=== PATIENT | female | born 1985 | race African-American/Black ===

== ENCOUNTER 2018-10-27 09:03 | Emergency (ER) | payer MEDICAID ==
[~2018-10-27] VITALS: Ht 180.3 cm; Wt 104.5 kg
[2018-10-27 09:08] VITALS: BP 128/70; Ht 180.3 cm; Wt 104.5 kg
[2018-10-27] MEDS ORDERED: ZOFRAN ODT4 MG/UDTAB PO (11:05)
== END 2018-10-27 13:00 | disposition home or self-care (01) ==
LOC: D.ER 09:03
DX: R10.9 Unspecified abdominal pain (principal); R11.10 Vomiting, unspecified

== ENCOUNTER 2018-11-20 12:15 | Observation (INO) | payer MEDICAID ==
[2018-11-20] VITALS (11 sets, daily range): BP systolic 129–164; BP diastolic 77–104; Ht 180.3 cm; Wt 113.6 kg
[~2018-11-20] VITALS: Ht 180.3 cm; Wt 113.6 kg
--- NOTE | ~2018-11-20 | DS ---
PATIENT:ELEAZAR ALEXIS :89 MEDICAL RECORD: [id number] DISCHARGE SUMMARY ADMISSION DATE: 11/20/18 DISCHARGE DATE: 11/21/18 DATE OF ADMISSION: 11/20/2018 DATE OF DISCHARGE: 11/21/2018 ADMISSION DIAGNOSIS: Pelvic pain. DISCHARGE DIAGNOSIS: Severe pelvic adhesions. ATTENDING: Gloria Ly MD PROCEDURE: Diagnostic laparoscopy. HISTORY OF PRESENT ILLNESS: See the H&P. SUMMARY OF HOSPITALIZATION: The patient was brought into the hospital as an outpatient. HOSPITAL COURSE: The patient received diagnostic laparoscopy later in the evening on Wednesday. By the following morning, the patient is voiding, tolerating a regular diet and has adequate pain control. The patient is discharged as the immediate postop orders directed and will follow up in 2 weeks at [facility]. TRANSINT:[id number] Voice Confirmation ID: [id number] DOCUMENT ID: [id number] GLORIA LY MD CC: [id number] DICTATION DATE: 11/24/181916 SEED SALES MANAGER: 11/25/18 1038 DIS IN 11/21/18 [facility] [address] [place] [address]
[~2018-11-20 12:15] MED LIST: ZOFRAN ODT4 MG/UDTAB PO
[2018-11-20 12:37] LABS: BASOPHILS 0.3 % (0-2); EOSINOPHILS 0.3 % (0-7); HEMATOCRIT 36.5 % (36.0-48.0); HEMOGLOBIN 13.3 g/dL (12-16); IMMATURE GRANULOCYTES 0.4 % (0-5); LYMPHOCYTES 19.7 % (15-50); MCH 26.8 pg (26.0-34.0); MCHC 36.4 g/dL (31.0-37.0); MCV 73.4 fL (80.0-100.0); MEAN PLATELET VOLUME 10.7 fL (7.4-10.4); MONOCYTES 3.8 % (2-11); NEUTROPHILS 75.5 % (40-80); PLATELET COUNT 165 10x3/uL (130-400); RBC 4.97 10x6/uL (4.00-5.40); RDW 15.5 % (11.5-14.5); WBC 10.4 10x3/uL (4.8-10.8)
[2018-11-20 12:51] LABS: ALBUMIN 3.9 g/dL (3.4-5.0); ALKALINE PHOSPHATASE 89 U/L (46-116); ALT (SGPT) 13 U/L (10-68); AMYLASE - SERUM 53 U/L (25-115); BILIRUBIN - TOTAL 0.34 mg/dL (0.2-1.3); CALC OSMOLALITY 274 mosm/kg (275-300); CALCIUM 8.6 mg/dL (8.5-10.1); CARBON DIOXIDE 24.4 mmol/L (21.0-32.0); CHLORIDE - SERUM 102 mmol/L (98-107); CREATININE - SERUM 0.9 mg/dL (0.6-1.3); GLUCOSE 123 mg/dL (74-106); LIPASE 72 U/L (73-393); PROTEIN - SERUM 8.1 g/dL (6.4-8.2); SODIUM 138 mmol/L (136-145); UREA NITROGEN 8 mg/dL (7-18); eGFR NON AFRICAN AMERICAN 78 mL/min (90-120)
[2018-11-20 12:53] LABS: POTASSIUM - SERUM 2.9 mmol/L (3.5-5.1)
[2018-11-20 13:28] LABS: APPEARANCE CLEAR (CLEAR); BILIRUBIN NEGATIVE (NEGATIVE); COLOR YELLOW (YELLOW); GLUCOSE NEGATIVE (NEGATIVE); KETONE SMALL mg/dL (NEGATIVE); NITRITE NEGATIVE (NEGATIVE); PROTEIN NEGATIVE (NEGATIVE); UROBILINOGEN NORMAL (NORMAL)
[2018-11-20 17:45] LABS: ALBUMIN 3.9 g/dL (3.4-5.0); ALKALINE PHOSPHATASE 94 U/L (46-116); ALT (SGPT) 13 U/L (10-68); BILIRUBIN - TOTAL 0.46 mg/dL (0.2-1.3); CALC OSMOLALITY 270 mosm/kg (275-300); CALCIUM 8.7 mg/dL (8.5-10.1); CHLORIDE - SERUM 101 mmol/L (98-107); CREATININE - SERUM 0.7 mg/dL (0.6-1.3); GLUCOSE 118 mg/dL (74-106); POTASSIUM - SERUM 3.1 mmol/L (3.5-5.1); PROTEIN - SERUM 8.2 g/dL (6.4-8.2); SODIUM 136 mmol/L (136-145); UREA NITROGEN 6 mg/dL (7-18); eGFR NON AFRICAN AMERICAN > 90 mL/min (90-120)
[2018-11-20 17:53] LABS: HCG SERUM NEGATIVE (NEGATIVE)
[2018-11-21 04:46] VITALS: BP 123/69
[2018-11-21 09:27] VITALS: BP 136/88
[2018-11-21] MEDS ORDERED: NEURONTIN 300300 MG PO (11:20)
[2018-11-21] MEDS ORDERED: PERCOCET 7.5/321 TAB PO (11:20)
[2018-11-21] MEDS ORDERED: MOBIC7.5 MG PO (11:21)
--- NOTE | 2018-11-21 19:12 | MORECARE ---
CASE MANAGEMENT DISCHARGE SUMMARY PATIENT: ELEAZAR ALEXSI UNIT: [id number] ADM DATE: 11/20/18 AGE: 32 : 87 SEX: F ROOM/BED: D.1273 AUTHOR: DEJAH HALE PHYSICIAN: REFERRING PHYSICIAN: GLORIA LY MD DATE OF SERVICE: 11/21/18 Discharge Plan Patient Name: ELEAZAR ALEXIS Facility: [facility]:[place] : 1985 Planned Disposition: Home Anticipated Discharge Date: 11/21/18 Discharge Date: 11/21/2018 Expected LOS: 1 Initial Reviewer: [email or web address] Initial Review Date: 11/20/2018 Generated: 11/21/18 8:12 pm Patient Name: ELEAZAR ALEXIS Page [id number] at 1912 All edits/amendments must be made on the electronic document DICTATION DATE: 11/21/181910 MOBILE HEAVY EQUIPMENT OPERATOR: MYKE 11/21/181910 RPT#: [id number] DC DATE:11/21/18 STATUS: DIS IN [facility] [address] [facility] [place] [address] END OF REPORT
--- NOTE | 2018-11-21 19:24 | MORECARE ---
CASE MANAGEMENT DISCHARGE SUMMARY PATIENT: ELEAZAR ALEXIS UNIT: [id number] ADM DATE: 11/20/18 AGE: 32 : 89 SEX: F ROOM/BED: D.1273 AUTHOR: DEJAH HALE PHYSICIAN: REFERRING PHYSICIAN: GLORIA LY MD DATE OF SERVICE: 11/21/18 Discharge Plan Patient Name: ELEAZAR ALEXIS Facility: [facility]:[place] : 1985 Planned Disposition: Home Anticipated Discharge Date: 11/21/18 Discharge Date: 11/21/2018 Expected LOS: 1 Initial Reviewer: [email or web address] Initial Review Date: 11/20/2018 Generated: 11/21/18 8:24 pm Comments DCP- Discharge Planning Updated by [email or web address]: Damari Patel on 11/21/18 6:[address] LATE ENTRY 1243- 1330 CM MET WITH THE PATIENT AT THE [facility]. SHE HAD BEEN DISCHARGED BUT REQUIRED MEDICATION ASSISTANCE. SHE HAD MET W/ MED DATA PREVIOUSLY AT AN ER VISIT. SHE HAD PROVIDED INFORMATION REQUIRED FOR MEDICAID ASSISTANCE. TC TO TAHIRA AT [employer]. HE CALLED MEDICAID REGARDING THE APPLICATION. REC CB THAT APPLICATION WAS PENDING APPROVAL. CM HAD NURSING STAFF TO CALL FOR COST FOR GABAPENTIN NINE DOSES AND MOBIC FOR 2 WEEKS AT [facility], [facility] CONTRACTED PHARMACY, FOR MED ASSIST.. REC CB THAT COST IS $12.00. CM CANNOT ASSIST W/ PAIN MEDS. COST TO PATIENT WILL BE $30.00. DONATION OF $10.00 TO ASSIST W/ ANALGESIC. TC TO CM TRANSCRIBING OPERATORS SUPERVISOR, JACINTA RAMIREZ. APPROVAL OBTAINED FOR $12.00 FOR MOBIC AND GABAPENTIN AT [facility] PHARMACY.. ADVISED NURSES. PATIENT HAS TRANSPORTATION TO HOME. PATIENT DENIED ANY ADDITIONAL NEED. Last DP export: 11/21/18 6:12 p Patient Name: ELEAZAR ALEXIS Page 16830 at 1924 All edits/amendments must be made on the electronic document DICTATION DATE: 11/21/181923 INSTRUMENTATION AND CONTROL TECHNICIAN: MYKE 11/21/181923 RPT#: [id number] DC DATE:11/21/18 STATUS: DIS IN [facility] [address] [place] [address] END OF REPORT
--- NOTE | 2018-11-22 16:25 | MORECARE ---
CASE MANAGEMENT DISCHARGE SUMMARY PATIENT: ELEAZAR ALEXIS UNIT: [id number] ADM DATE: 11/20/18 AGE: 32 : 89 SEX: F ROOM/BED: D.1273 AUTHOR: DEJAH HALE PHYSICIAN: REFERRING PHYSICIAN: GLORIA LY MD DATE OF SERVICE: 11/22/18 Discharge Plan Patient Name: ELEAZAR ALEXIS Facility: [facility]:[place] : 1985 Planned Disposition: Home Anticipated Discharge Date: 11/21/18 Discharge Date: 11/21/2018 Expected LOS: 1 Initial Reviewer: [email or web address] Initial Review Date: 11/20/2018 Generated: 11/22/18 5:25 pm Comments DCP- Discharge Planning Updated by [email or web address]: Damari Patel on 11/21/18 6:[address] LATE ENTRY 1243- 1330 CM MET WITH THE PATIENT AT THE [facility]. SHE HAD BEEN DISCHARGED BUT REQUIRED MEDICATION ASSISTANCE. SHE HAD MET W/ MED DATA PREVIOUSLY AT AN ER VISIT. SHE HAD PROVIDED INFORMATION REQUIRED FOR MEDICAID ASSISTANCE. TC TO TAHIRA AT [employer]. HE CALLED MEDICAID REGARDING THE APPLICATION. REC CB THAT APPLICATION WAS PENDING APPROVAL. CM HAD NURSING STAFF TO CALL FOR COST FOR GABAPENTIN NINE DOSES AND MOBIC FOR 2 WEEKS AT [facility], [facility] CONTRACTED PHARMACY, FOR MED ASSIST.. REC CB THAT COST IS $12.00. CM CANNOT ASSIST W/ PAIN MEDS. COST TO PATIENT WILL BE $30.00. DONATION OF $10.00 TO ASSIST W/ ANALGESIC. TC TO CM ASSISTANT PROFESSOR OF CRIMINAL JUSTICE, JACINTA RAMIREZ. APPROVAL OBTAINED FOR $12.00 FOR MOBIC AND GABAPENTIN AT [facility] PHARMACY.. ADVISED NURSES. PATIENT HAS TRANSPORTATION TO HOME. PATIENT DENIED ANY ADDITIONAL NEED. Last DP export: 11/21/18 6:24 p Patient Name: ELEAZAR ALEXIS Page [phone] at 9875 All edits/amendments must be made on the electronic document DICTATION DATE: 11/22/180 TORCH CUTTER: MYKE 11/22/18 1625 RPT#: [id number] DC DATE:11/21/18 STATUS: DIS IN [facility] [address] [place] [address] END OF REPORT
--- NOTE | 2018-11-25 08:18 | OP ---
PATIENT NAME: ELEAZAR ALEXIS MEDICAL RECORD: [id number] :89 LOCATION:[place] D.1273 ADMISSION DATE:11/20/18 SURGEON: MARK LY MD DATE OF OPERATION: 11/20/2018 PREOPERATIVE DIAGNOSES: 1. Abdominal pain. 2. Pelvic pain. POSTOPERATIVE DIAGNOSES: 1. Abdominal pain. 2. Pelvic pain. POSTOPERATIVE DIAGNOSES: 1. Dense adhesive diseases. 2. Active endometriosis. PROCEDURES: Diagnostic laparoscopy. SURGEON: Mark Ly MD ANESTHESIOLOGIST: RHYS Marte. ANESTHESIA: General. FINDINGS: Dense adhesions across the lower pelvis. The anterior surface of the uterus is visualized; however, cul-de-sac is obliterated through adhesions. The left ovary is poorly visualized with only the lateral aspect seen. Active endometriosis is noted on the pelvic sidewall and on the left ovary. Right ovary is adhesed as well with no obvious evidence of endometriosis. SPECIMENS REMOVED: None. ESTIMATED BLOOD LOSS: Less than or equal to 75 cc. FLUIDS: 1100 cc of lactated Ringer's. URINE OUTPUT: Quantity sufficient, but void prior to this procedure. COMPLICATIONS: None. DRAIN: None. INDICATIONS: The patient is a 32-year-old female admitted from the Emergency Room. The patient has been seen several times for complaints of abdominal and pelvic pain. The patient is consented for diagnostic laparoscopy. DESCRIPTION OF PROCEDURE: After informed consent was assured, the patient was prepped and draped. An incision was made with the umbilicus and a bladeless trocar was attempted to be inserted. Due to the patient's size, the bladeless trocar was abandoned and a Reshma trocar now placed after incision made. Pneumoperitoneum was established and accessory ports placed in lower abdomen. With a blunt probe, the bowel was swept free. With the patient in Trendelenburg position, the adhesions are dense across the lower pelvis. The cul-de-sac appears to be obliterated and active endometriosis is present on the left. Due OPERATIVE REPORT [id number] ELEAAZR ALEXIS to the extent of adhesions, there was no attempt at laparoscopic lysis and procedures at this point abandoned. Pneumoperitoneum was released. Trocars were removed and all trocar sites reapproximated with subcuticular stitches. Dermabond was applied. Sponge, lap, needle counts were correct times 2. The patient was awake and went to the recovery area in stable condition. TRANSINT:[id number] Voice Confirmation ID: [id number] DOCUMENT ID: [id number] MARK LY MD at 0818 CC: [id number] DICTATION DATE: 11/24/181914 COLLEGE ARCHIVIST: 11/24/182001 DIS IN 11/21/18 [place] [id number] [place] [id number]
== END 2018-11-21 13:30 | disposition home or self-care (01) ==
LOC: D.ER 12:15 → D.LD 16:52 → OBSVTIME 16:53 → D.LD 11-21 13:30
PROVIDERS: Family Medicine; ADMIT Obstetrics & Gynecology; ATTEND Obstetrics & Gynecology
DX: N80.9 Endometriosis, unspecified (principal); N73.6 Female pelvic peritoneal adhesions (postinfective)

== ENCOUNTER 2018-12-09 17:29 | Observation (INO) | payer MEDICAID ==
[~2018-12-09 17:29] MED LIST changes: +MOBIC7.5 MG PO; +NEURONTIN 300300 MG PO; +PERCOCET 7.5/321 TAB PO
[2018-12-09 18:29] LABS: APPEARANCE HAZY (CLEAR); BILIRUBIN NEGATIVE (NEGATIVE); COLOR DK YELLOW (YELLOW); GLUCOSE NEGATIVE (NEGATIVE); KETONE NEGATIVE (NEGATIVE); NITRITE NEGATIVE (NEGATIVE); PROTEIN TRACE mg/dL (NEGATIVE); SPECIFIC GRAVITY 1.015 (1.005-1.020); UROBILINOGEN NORMAL (NORMAL); WHITE CELLS - URINE 0-5 /hpf (0-5)
[2018-12-09 18:30] LABS: BACTERIA FEW /hpf (NONE SEEN); EPITHELIAL CELLS 0-5 /hpf (0-5); RED CELLS - URINE >50 /hpf (0-5)
[2018-12-09 18:32] LABS: BASOPHILS 0.4 % (0-2); EOSINOPHILS 1.1 % (0-7); HEMATOCRIT 37.8 % (36.0-48.0); HEMOGLOBIN 13.6 g/dL (12-16); IMMATURE GRANULOCYTES 0.2 % (0-5); LYMPHOCYTES 27.7 % (15-50); MCH 26.6 pg (26.0-34.0); MONOCYTES 5.9 % (2-11); NEUTROPHILS 64.7 % (40-80); PLATELET COUNT 135 10x3/uL (130-400); RBC 5.11 10x6/uL (4.00-5.40); RDW 15.8 % (11.5-14.5); WBC 9.2 10x3/uL (4.8-10.8)
[2018-12-09 18:35] LABS: HCG SERUM NEGATIVE (NEGATIVE)
[2018-12-09 18:43] LABS: ALBUMIN 4.2 g/dL (3.4-5.0); ALKALINE PHOSPHATASE 86 U/L (46-116); ALT (SGPT) 11 U/L (10-68); AMYLASE - SERUM 55 U/L (25-115); BILIRUBIN - TOTAL 0.48 mg/dL (0.2-1.3); CALC OSMOLALITY 277 mosm/kg (275-300); CALCIUM 9.1 mg/dL (8.5-10.1); CARBON DIOXIDE 18.9 mmol/L (21.0-32.0); CHLORIDE - SERUM 104 mmol/L (98-107); CREATININE - SERUM 0.8 mg/dL (0.6-1.3); GLUCOSE 120 mg/dL (74-106); LIPASE 67 U/L (73-393); POTASSIUM - SERUM 3.5 mmol/L (3.5-5.1); PROTEIN - SERUM 8.2 g/dL (6.4-8.2); SODIUM 139 mmol/L (136-145); UREA NITROGEN 9 mg/dL (7-18); eGFR NON AFRICAN AMERICAN 89 mL/min (90-120)
--- NOTE | 2018-12-09 19:11 | NUR ---
REPORT GIVEN TO ONCOMING SHIFT
--- NOTE | 2018-12-09 19:25 | NUR ---
PT TO ULTRASOUND VIA WHEELCHAIR AT THIS TIME.
--- NOTE | 2018-12-09 20:28 | NUR ---
PT TO CT AT THIS TIME.
--- NOTE | 2018-12-09 21:13 | NUR ---
PT AMBULATING TO BATHROOM WITH ASSIST AT THIS TIME.
[2018-12-09 21:14] VITALS: BP 158/106
--- NOTE | 2018-12-09 23:10 | NUR ---
PT BACK FROM ULTRASOUND A THIS TIME.
--- NOTE | 2018-12-09 23:41 | NUR ---
PT REPORT CALLED TO MONICA, FLOOR NURSE. MONICA REQUESTED CONSULT WITH EDP OR SAMUEL ABOUT PT BP. EDP DOESN'T FEEL AGRESSIVELY TREATING BP IN A PT THAT IS IN PAIN IS NECESSARY AT THIS TIME.
[2018-12-10] VITALS (13 sets, daily range): BP systolic 116–223; BP diastolic 67–128; BMI 37.8
--- NOTE | 2018-12-10 01:10 | NUR ---
PT REC'D TO UNIT VIA W/C TRANSPORT WITH FEEDER ASSOCIATE FULLY CLOTHED, TEARFUL AND CONSTANTLY MOVING IN W/C. PAIN 10/10 CONSTANT LOWER ABD AND PELVIC THROBBING. ASSISTED TO CHANGE INTO GOWN. PT REPORTS THAT SHE WAS TOLD SHE COULD HAVE MORE PAIN MEDS AT 0015 IN ER AND HAD ASK FOR THEM BUT DID NOT RECEIVE THEM PRIOR TO TRANSPORT. THIS RN REC'D REPORT AT 2341 FROM TREMAYNE, ED RN WITH REPORTED B/P READING OF 160/95 AT THAT TIME. THIS RN REQUESTED THAT TREMAYNE ADDRESS ELEVATED B/P READING WITH ER OR DR. BAKER PRIOR TO TRANSPORT TO UNIT. TREMAYNE STATES THAT SHE WILL AND CALL REPORT BACK TO UNIT.
--- NOTE | 2018-12-10 01:15 | NUR ---
PT ASSISTED TO BED AND POSITIONED FOR COMFORT. B/P 223/107. PT REPORTS THAT SHE HAS NO H/O HTN EXCEPT FOR "WHEN I'M HURTING REALLY BAD OR AM ANXIOUS." ANDREA, HOUSE SUPERVISIOR NOTIFIED OF B/P AND THIS RN REQUEST TO TRANSPORT PT BACK TO ER FOR B/P AND PAIN CONTROL. PER ANDREA NECK BAND OPERATOR PT CAN NOT BE TRANSPORTED BACK TO ED SINCE SHE LEFT THE DEPARTMENT. WILL REPORT TO DR. BAKER FOR ADDITIONAL ORDERS.
--- NOTE | 2018-12-10 01:20 | NUR ---
BLANCA YOUNG IN ER CALLED TO VERIFY LAST MORPHINE ADMINISTRATION. SHE REPORTS THAT IT WAS DUE AT [facility] AND THAT SHE HAD REPORTED THAT TO [facility], SHE STATES THAT SHE WAS ON LUNCH BREAK AND THAT THE PATIENT HAD NOT RECEIVED ANY MORE MORPHINE SINCE THE INITIAL DOSE AT APPX 2000.
--- NOTE | 2018-12-10 01:22 | NUR ---
REPORT CALLED TO DR. BAKER REGARDING PT'S UNCONTROLLED AND B/P READING UPON ARRIVAL TO UNIT OF 223/107. REPORT GIVEN TO DR. BAKER THAT THIS RN REC'D REPORT AT 2341 FROM DREDGE CAPTAIN AND IT WAS REPORTED AT THAT TIME THAT PT HAD HAD B/P OF 160/95 AND IT WAS ASK THAT ED MD ADDRESS B/P PRIOR TO TRANSPORT AND UPDATED REPORT BE CALLED TO L&D UNIT PRIOR TO TRANSPORT. NOTIFIED DR. BAKER THAT THIS RN DID NOT RECEIVE AN UPDATED REPORT. ORDERS REC'D TO TRANSPORT PT BACK TO ER FOR B/P AND PAIN MANAGEMENT. DR. BAKER REPORTS THAT DID NOT AGREE TO ADMIT PT UNTIL RECEIVING REPORT FROM TRANSVAGINAL U/S, WHICH HE HAS NOT REC'D AT THIS TIME.
--- NOTE | 2018-12-10 01:24 | NUR ---
ANDREA, [place] SUPERVISIOR NOTIFIED OF CONVERSATION WITH DR. BAKER AND THAT ORDER HAD BEEN REC'D TO TRANSPORT PT BACK TO ER. PER ANDREA, PT CAN NOT BE TRANSPORTED BACK TO ED. THIS RN REQUESTS SMOKEHOUSE WORKER SPEAK WITH DR. BAKER. ANDREA STATES DR. BAKER CAN DISCUSS PT WITH ER MD.
--- NOTE | 2018-12-10 01:35 | NUR ---
ADMINISTERED MORPHINE 4 MG SLOW IVP PER MD ORDERS FOR PAIN AT THIS TIME. SEE EMAR.
--- NOTE | 2018-12-10 01:39 | NUR ---
DR. BAKER NOTIFIED OF CONVERSATION BETWEEN THIS RN AND DEE MENDEZ SUPERVISIOR. REPORTED TO THAT PER DEE SUPERVISIOR, PT CAN NOT BE TRANSPORTED BACK TO ER. ORDERS REC'D FOR DILUADID WEDDING MAKEUP ARTIST WITH 0.4 MG LOADING DOSE, RECHECK B/P IN 30 MINUTES OR WHEN PAIN WAS BETTER CONTROLLED AND REPORT IF STILL ELEVATED 30 MINUTES AFTER RECEIVING WEDDING MAKEUP ARTIST.
--- NOTE | 2018-12-10 01:54 | NUR ---
DILUADID CHISEL WORKER NOT AVAILABLE ON UNIT, GLOBAL FIND DONE. REPORTED TO ANDREA HOUSE SUPERVISIOR AND NOTIFIED THAT MED WAS AVAILABE ON UNIT BUT WAS AVAILABLE ON MED I, MED II, MED III, ICU, AND PCU. ANDREA REQUEST THIS RN MEET HER ON MED II TO GET MED. THIS RN TO MED II.
--- NOTE | 2018-12-10 01:57 | NUR ---
ZOFRAN 4MG SLOW IVP PER MD ORDERS FOR NAUSEA. SEE EMAR
--- NOTE | 2018-12-10 02:00 | NUR ---
ATIVAN 0.5 MG SLOW IVP PER MD ORDERS AT THIS TIME, SEE EMAR.
--- NOTE | 2018-12-10 02:03 | NUR ---
DILUADID CHEESE PACKER INITIATED PER ORDER. LOADING DOSE OF 0.4 MG GIVEN FROM CHEESE PACKER SYRINGE PER ORDER. PT EDUCATED ON CHEESE PACKER AND USE, VERBALIZES UNDERSTANDING. CHEESE PACKER BUTTON PLACED WITHIN REACH. EDUCATED PT ON POSSIBLE SIDE EFFECTS, VERBALIZES UNDERSTANDING. CHEESE PACKER SETTINGS VERIFIED WITH Camila NEW RN.
--- NOTE | 2018-12-10 02:04 | NUR ---
THIS RN REMAINS AT BEDSIDE FOR ADMISSION ASSESSMENT AND HISTORY. PT CONVERSING WITH SIGNIFICANT OTHER AND RN. REPORTS THAT PAIN IS DECREASING FOLLOWING RECEIVING MORPHINE. PAIN CURRENTLY 12/16.
[2018-12-10] MEDS ORDERED: PERCOCET 7.5/321 TAB PO (02:15)
--- NOTE | 2018-12-10 02:36 | NUR ---
ADMISSION ASSESSMENT AND HISTORY COMPLETED PER FLOWSHEET. PAIN DECREASED TO 2/10, CONSTANT ABD/PELVIC PAIN DESCRIBED THROBBING. SUBSTATION SUPERVISOR CURRENTLY INFUSING. SIGNIFICANT OTHER AT BEDSIDE, SUPPORTIVE OF PT. DISCUSSED PLAN OF CARE WITH PT AND SIGNIFICANT OTHER, VERBALIZE UNDERSTANDING AND DENIES NEEDS. SWABS PROVIDED TO PT D/T NPO STATUS. INSTRUCTED TO USE CALL LIGHT FOR ASSISTANCE OOB PRN, VERBALIZES UNDERSTANDING. BED IN LOW POSITION WITH UPPER SIDE RAILS RAISED X2. CALL LIGHT AND PHONE WITHIN REACH. WILL CONTINUE TO MONITOR.
--- NOTE | 2018-12-10 03:10 | NUR ---
UP TO BATHROOM. STEADY GAIT NOTED. INSTRUCTED BLOCKER AUTOMATIC LIGHT USE IN BATHROOM, VERBALIZES UNDERSTANDING. DENIES DIZZINESS. 2 QUARTER SIZED BLOOD CLOTS NOTED ON PERIPAD, MODERATE AMT BRB NOTED ON CURRENT PAD, PT REPORTS THAT SHE CHANGED HER PAD IN ER FOLLOWING TRANSVAGINAL U/S.
--- NOTE | 2018-12-10 03:38 | NUR ---
DR. BAKER CALLS UNIT. UPDATED ON PT PAIN AND B/P READINGS.
--- NOTE | 2018-12-10 04:56 | NUR ---
NEW BAG NS HUNG TO CONTINUE TO INFUSE AT 100 MLS/HR PER ORDER. DENIES PAIN, REPORTS THAT SINCE RECEIVING PAIN MEDICATION AND ORDER RUNNER LOADING DOSE PAIN IS WELL CONTROLLED. VSS. B/P CUFF REMOVED. PT RESTING QUIETLY. DENIES NEEDS. BED IN LOW POSITION WITH UPPER SIDE RAILS RAISED X2. CALL LIGHT AND PHONE WITHIN REACH.
[2018-12-10] MEDS ORDERED: BIRTH CONTROL (05:06)
[2018-12-10 06:30] LABS: BASOPHILS 0.1 % (0-2); EOSINOPHILS 0 % (0-7); HEMATOCRIT 36.1 % (36.0-48.0); IMMATURE GRANULOCYTES 0.2 % (0-5); LYMPHOCYTES 12.6 % (15-50); MCH 26.7 pg (26.0-34.0); MCV 74.3 fL (80.0-100.0); MONOCYTES 5.1 % (2-11); PLATELET COUNT 131 10x3/uL (130-400); RBC 4.86 10x6/uL (4.00-5.40); RDW 15.8 % (11.5-14.5); WBC 10.5 10x3/uL (4.8-10.8)
--- NOTE | 2018-12-10 06:30 | NUR ---
I&O DONE, PT RESTING IN SEMI-FOWLERS POSITION. REPORTS THAT SHE HAS USED KETTLE TENDER BUTTON TIMES 3 WHEN PAIN REACHED 5-6/10. CONTINUES TO DESCRIBE PAIN THROBBING TO LOWER ABD AND PELVIS REGION. DENIES NEEDS. BED IN LOW POSITION WITH UPPER SIDE RAILS RAISED X2. CALL LIGHT AND PHONE WITHIN REACH. WILL CONTINUE TO MONITOR AND ASSIST PRN.
[2018-12-10 06:43] LABS: CALCIUM 8.9 mg/dL (8.5-10.1); CHLORIDE - SERUM 103 mmol/L (98-107); CREATININE - SERUM 0.8 mg/dL (0.6-1.3); GLUCOSE 113 mg/dL (74-106); MAGNESIUM - SERUM 1.8 mg/dL (1.8-2.4); PHOSPHOROUS 4.2 mg/dL (2.5-4.9); SODIUM 138 mmol/L (136-145); eGFR NON AFRICAN AMERICAN 89 mL/min (90-120)
[2018-12-10 06:45] LABS: CALC OSMOLALITY 274 mosm/kg (275-300); CARBON DIOXIDE 26.9 mmol/L (21.0-32.0); POTASSIUM - SERUM 4.3 mmol/L (3.5-5.1); UREA NITROGEN 6 mg/dL (7-18)
--- NOTE | 2018-12-10 07:21 | NUR ---
PHARMACY CALLED TO ASSIST WITH FIXING A MEDICATION WASTE IN THE PYXIS. STATES THAT THEY ARE UNABLE TO DO SO AND TO WRITE A NURSES NOTED EXPLAINING THE SITUATION IN THE CASE OF AN AUDIT. THE PHYSICIANS ORDER WAS FOR ATIVAN 0.5 MG, THE VIAL CONTAINED 2MG PER 1 ML, THEREFORE 0.25ML WAS ADMINISTERED. WHEN WASTING THE REMAINING 1.5 MG THE WASTE WAS ACCIDENTALLY CHARTED 1.75 USING ML'S.
--- NOTE | 2018-12-10 07:59 | NUR ---
ASSUMED CARE OF THIS PATIENT. AROUSED FROM SLEEP WITHOUT DIFFICULTY FOR SHIFT ASSESSMENT. DENIES NEEDING ANYTHING SAYS THE PAIN MEDICATION (CERTIFIED HAND THERAPIST DILAUDID) HAS HELPED HER PAIN. NOW 2/10 GENERAL ABD THROBBING. LAST MEAL BEFORE COMING INTO HOSPITAL LAST EVENING. HAS BEEN UP TO VOID ON OWN WITHOUT DIFFICULTY PER PT STATEMENT. ENCOURAGED PT TO CALL NURSE WHEN NEEDING TO GET UP DUE TO CERTIFIED HAND THERAPIST MEDS. VERBALIZED UNDERSTANDING. CURRENTLY ON MENSES. SIDERAILS UP X 2, CALL LIGHT IN REACH. VISITOR SLEEPING ON COUCH.
--- NOTE | 2018-12-10 09:26 | NUR ---
SLEEPING ON RIGHT SIDE. RESPIRATIONS EVEN. NOT DISTURBED AT THIS TIME. WILL ALLOW TO CONTINUE TO SLEEP. SIDE RAILS UP X 2, CALL LIGHT IN REACH. VISITOR REMAINS SLEEPING ON COUCH.
--- NOTE | 2018-12-10 09:40 | NUR ---
DR BAKER VISITED PATIENT. DISCUSSED RESULTS OF RADIOLOGY SCANS. MD PLANS PO MEDS, REGULAR DIET AND DC HOME WHEN PATIENT FEELING BETTER ON PO MEDS, HE ALSO DISCUSSED WITH PATIENT PLANS FOR F/U IN CLINIC THIS WEEK FOR US.
--- NOTE | 2018-12-10 09:55 | NUR ---
UP TO BATHROOM TO VOID. TOLERATED WELL, CLEAN DISPOSABLE MATERNITY UNDERWEAR GIVEN TO PATIENT. NO ADDITIONAL REQUESTS.
--- NOTE | 2018-12-10 10:21 | NUR ---
SITTING UP IN BED. NO DISTRESS NOTED. REGULAR BREAKFAST SERVED. CURRENTLY 2/10 ABDOMINAL INTERMITTENT THROBBING, HAS BEEN USING DILAUDID LABORER [employer]. LABORER CHICKEN [employer]ARM DC'D. PERCOCET 10 MG GIVEN TO TO ASSIST WITH TRANSITION IN PAIN MEDICATION FROM IV TO PO. DENIES NEEDING ANYTHING. WILL GIVE SCHEDULED MEDS ORDERED BY MD WHEN ARRIVES FROM PHARMACY. PT IS NON-SMOKER.
--- NOTE | 2018-12-10 11:25 | NUR ---
LAYING IN BED. SAYS SHE IS FEELING ABOUT THE SAME, 2/10 THROBBING. NO INCREASE IN PAIN AFTER DONOR SERVICES MANAGER DC'D. THINKING ABOUT WANTING TO GO HOME AFTER 1200. SAYS SHE HAS ABOUT 7-8 MOBIX LEFT AT HOME. WAS GIVEN 9 TABLETS OF NEUROTIN BY DR LY AND COMPLETED MEDS ORDERED. SAYS THE OXYCODONE HELPS THE BEST. ALSO ASKED ABOUT STARTING THE BC PILLS THAT WERE PRESCRIBED BY DR LY LAST WEEK. INSTRUCTED PT THAT THIS RN WILL ASK WHEN CONTACTING DR BAKER ABOUT DC HOME.
--- NOTE | 2018-12-10 12:12 | NUR ---
READY TO GO HOME. SAYS SHE IS FEELING BETTER 2/10 INTERMITTENT ABD THROBBING. STATES "I DON'T FEEL WORSE AND THAT IS GOOD." PT HAD ASKED ABOUT STARTING OCPS ORDERED BY DR LY. CONTACTED DR BAKER TO LET ABOVE KNOW. ORDERS RECEIVED TO DC HOME AND TO START OCPS.
--- NOTE | 2018-12-10 12:16 | NUR ---
SITTING UP EATING LUNCH. INFORMED THAT DR BAKER GAVE DC ORDER AND SAID YES SHE SHOULD START HER OCPS. VERBALIZED UNDERSTANDING.
--- NOTE | 2018-12-10 12:50 | NUR ---
SALINE LOCK DC'D WITH TIP INTACT. DC HOME VIA WHEELCHAIR AFTER GIVING VERBAL AND WRITTEN DC INSTRUCTIONS ON MEDICATION ADMINISTRATION, FOLLOW-UP, S&S INFECTION, DANGER SIGNS, DC INSTRUCTIONS FOR ACUTE ABDOMINAL PAIN AND ENDOMETRIOSIS. VERBALIZED UNDERSTANDING. PT WILL CALL WEDNESDAY TO SCHEDULE F/U WITH DR LY THIS WEEK AND US IN CLINIC. ALL BELONGINGS REMOVED FROM ROOM.
== END 2018-12-10 12:50 | disposition home or self-care (01) ==
LOC: D.ER 17:29 → OBSVTIME 22:56 → D.LD 22:56
PROVIDERS: Family Medicine; ADMIT Obstetrics & Gynecology; ATTEND Obstetrics & Gynecology
DX: N80.9 Endometriosis, unspecified (principal); I10 Essential (primary) hypertension

== ENCOUNTER 2019-01-06 09:44 | Emergency (ER) | payer MEDICAID ==
[~2019-01-06] VITALS: Ht 180.3 cm; Wt 122.7 kg
[~2019-01-06 09:44] MED LIST changes: +BIRTH CONTROL
[2019-01-06 09:55] VITALS: Ht 180.3 cm; Wt 122.7 kg
[2019-01-06 10:34] LABS: ALBUMIN 3.9 g/dL (3.4-5.0); ALKALINE PHOSPHATASE 74 U/L (46-116); ALT (SGPT) 30 U/L (10-68); BILIRUBIN - TOTAL 0.48 mg/dL (0.2-1.3); CALC OSMOLALITY 274 mosm/kg (275-300); CALCIUM 9.5 mg/dL (8.5-10.1); CARBON DIOXIDE 22.4 mmol/L (21.0-32.0); CHLORIDE - SERUM 103 mmol/L (98-107); GLUCOSE 119 mg/dL (74-106); POTASSIUM - SERUM 3.4 mmol/L (3.5-5.1); PROTEIN - SERUM 8.1 g/dL (6.4-8.2); SODIUM 138 mmol/L (136-145); UREA NITROGEN 7 mg/dL (7-18); eGFR NON AFRICAN AMERICAN 69 mL/min (90-120)
[2019-01-06 10:38] LABS: AMYLASE - SERUM 45 U/L (25-115); LIPASE 66 U/L (73-393); TROPONIN-I < 0.017 ng/mL (0.000-0.060)
[2019-01-06 10:43] LABS: BASOPHILS 0.2 % (0-2); EOSINOPHILS 0.9 % (0-7); HEMATOCRIT 37.2 % (36.0-48.0); HEMOGLOBIN 13.5 g/dL (12-16); IMMATURE GRANULOCYTES 0.2 % (0-5); LYMPHOCYTES 32.1 % (15-50); MCH 26.7 pg (26.0-34.0); MCHC 36.3 g/dL (31.0-37.0); MCV 73.7 fL (80.0-100.0); MONOCYTES 5.9 % (2-11); NEUTROPHILS 60.7 % (40-80); RBC 5.05 10x6/uL (4.00-5.40); RDW 15.4 % (11.5-14.5); WBC 8.1 10x3/uL (4.8-10.8)
[2019-01-06 10:45] LABS: PLATELET COUNT 163 10x3/uL (130-400)
[2019-01-06] MEDS ORDERED: TORADOL10 MG PO (12:26)
[2019-01-06 12:54] LABS: HCG URINE NEGATIVE (NEGATIVE)
[2019-01-06 13:07] VITALS: BP 142/89
[2019-01-06 13:07] LABS: APPEARANCE SL CLDY (CLEAR); BACTERIA FEW /hpf (NONE SEEN); BILIRUBIN NEGATIVE (NEGATIVE); COLOR PINK (YELLOW); EPITHELIAL CELLS RARE /hpf (0-5); GLUCOSE NEGATIVE (NEGATIVE); KETONE MODERATE mg/dL (NEGATIVE); NITRITE NEGATIVE (NEGATIVE); PROTEIN TRACE mg/dL (NEGATIVE); RED CELLS - URINE >50 /hpf (0-5); UROBILINOGEN NORMAL (NORMAL); WHITE CELLS - URINE OCC /hpf (0-5)
== END 2019-01-06 13:08 | disposition home or self-care (01) ==
LOC: D.ER 09:44
PROVIDERS: Family Medicine
DX: R10.84 Generalized abdominal pain (principal)

== ENCOUNTER 2019-01-08 12:27 | Emergency (ER) | payer MEDICAID ==
[~2019-01-08 12:27] MED LIST changes: +TORADOL10 MG PO
[2019-01-08 12:35] VITALS: BMI 37.8
[2019-01-08 13:09] LABS: BASOPHILS 0.4 % (0-2); EOSINOPHILS 0.7 % (0-7); HEMATOCRIT 38.3 % (36.0-48.0); HEMOGLOBIN 13.9 g/dL (12-16); IMMATURE GRANULOCYTES 0.2 % (0-5); LYMPHOCYTES 26.8 % (15-50); MCH 26.9 pg (26.0-34.0); MCHC 36.3 g/dL (31.0-37.0); MCV 74.1 fL (80.0-100.0); MEAN PLATELET VOLUME 11.3 fL (7.4-10.4); MONOCYTES 6.7 % (2-11); NEUTROPHILS 65.2 % (40-80); PLATELET COUNT 159 10x3/uL (130-400); RBC 5.17 10x6/uL (4.00-5.40); RDW 15.3 % (11.5-14.5); WBC 9.6 10x3/uL (4.8-10.8)
[2019-01-08 13:24] LABS: ALBUMIN 4.1 g/dL (3.4-5.0); ALKALINE PHOSPHATASE 77 U/L (46-116); ALT (SGPT) 58 U/L (10-68); BILIRUBIN - TOTAL 0.52 mg/dL (0.2-1.3); CALC OSMOLALITY 277 mosm/kg (275-300); CALCIUM 9.4 mg/dL (8.5-10.1); CARBON DIOXIDE 21.6 mmol/L (21.0-32.0); CHLORIDE - SERUM 102 mmol/L (98-107); CREATININE - SERUM 1.1 mg/dL (0.6-1.3); GLUCOSE 115 mg/dL (74-106); POTASSIUM - SERUM 3.3 mmol/L (3.5-5.1); PROTEIN - SERUM 8.3 g/dL (6.4-8.2); SODIUM 139 mmol/L (136-145); UREA NITROGEN 10 mg/dL (7-18); eGFR NON AFRICAN AMERICAN 61 mL/min (90-120)
[2019-01-08 13:27] LABS: AMYLASE - SERUM 41 U/L (25-115); LIPASE 73 U/L (73-393); TROPONIN-I < 0.017 ng/mL (0.000-0.060)
[2019-01-08] MEDS ORDERED: ZOFRAN ODT4 MG/UDTAB PO (14:24)
[2019-01-08] MEDS ORDERED: VOLTAREN75 MG PO (14:24)
[2019-01-08 14:59] LABS: HCG URINE NEGATIVE (NEGATIVE)
[2019-01-08 15:00] LABS: UDS - AMPHET NEGATIVE QUAL (NEGATIVE); UDS - BARB NEGATIVE QUAL (NEGATIVE); UDS - BENZO NEGATIVE QUAL (NEGATIVE); UDS - COCAINE NEGATIVE QUAL (NEGATIVE); UDS - OPIATE POSITIVE QUAL (NEGATIVE); UDS - PCP NEGATIVE QUAL (NEGATIVE); UDS - THC POSITIVE QUAL (NEGATIVE)
[2019-01-08 15:19] LABS: APPEARANCE CLOUDY (CLEAR); BILIRUBIN NEGATIVE (NEGATIVE); COLOR YELLOW (YELLOW); GLUCOSE NEGATIVE (NEGATIVE); KETONE MODERATE mg/dL (NEGATIVE); NITRITE NEGATIVE (NEGATIVE); PROTEIN NEGATIVE (NEGATIVE); SPECIFIC GRAVITY 1.015 (1.005-1.020); UROBILINOGEN NORMAL (NORMAL)
[2019-01-08 15:22] LABS: BACTERIA MODERATE /hpf (NONE SEEN); EPITHELIAL CELLS 0-5 /hpf (0-5); HYALINE CAST RARE /lpf (NONE SEEN); RED CELLS - URINE >50 /hpf (0-5)
[2019-01-08 16:25] VITALS: BP 190/118
== END 2019-01-08 16:25 | disposition home or self-care (01) ==
LOC: D.ER 12:27
PROVIDERS: Emergency Medicine
DX: N73.6 Female pelvic peritoneal adhesions (postinfective) (principal); F19.90 Other psychoactive substance use, unspecified, uncomplicated; Z91.19 Patient's noncompliance with other medical treatment and regimen; R10.2 Pelvic and perineal pain

== ENCOUNTER 2019-01-18 14:25 | Inpatient (IN) | payer MEDICAID ==
[~2019-01-18] VITALS: Ht 180.3 cm; Wt 107.7 kg
[~2019-01-18 14:25] MED LIST changes: +VOLTAREN75 MG PO
[2019-01-27 10:56] LABS: BASOPHILS 0.5 % (0-2); EOSINOPHILS 2.5 % (0-7); HEMATOCRIT 36.1 % (36.0-48.0); HEMOGLOBIN 13.1 g/dL (12-16); IMMATURE GRANULOCYTES 0.2 % (0-5); LYMPHOCYTES 29.6 % (15-50); MCHC 36.3 g/dL (31.0-37.0); MCV 74.3 fL (80.0-100.0); MONOCYTES 7.9 % (2-11); NEUTROPHILS 59.3 % (40-80); PLATELET COUNT 136 10x3/uL (130-400); RBC 4.86 10x6/uL (4.00-5.40); RDW 15.2 % (11.5-14.5); WBC 5.7 10x3/uL (4.8-10.8)
[2019-01-27 11:11] LABS: CALC OSMOLALITY 275 mosm/kg (275-300); CARBON DIOXIDE 25.4 mmol/L (21.0-32.0); CHLORIDE - SERUM 105 mmol/L (98-107); CREATININE - SERUM 0.8 mg/dL (0.6-1.3); GLUCOSE 92 mg/dL (74-106); POTASSIUM - SERUM 4.1 mmol/L (3.5-5.1); SODIUM 139 mmol/L (136-145); UREA NITROGEN 8 mg/dL (7-18); eGFR NON AFRICAN AMERICAN 89 mL/min (90-120)
[2019-01-30 09:53] VITALS: BP 130/74; BMI 42.2
[2019-01-30 12:08] LABS: HCG URINE NEGATIVE (NEGATIVE)
--- NOTE | 2019-01-30 16:15 | NUR ---
1615 REPORT PHONED TO FLOOR
--- NOTE | 2019-01-30 16:22 | NUR ---
1620 SALINE LOCK IV SITE. REG DIET SERVED.
--- NOTE | 2019-01-30 18:02 | NUR ---
1700 ATE 100% FL DIET. 1730 [place]ON [place] SERVED.
--- NOTE | 2019-01-30 18:17 | NUR ---
1815 REPORT PHONED TO FLOOR NURSE.
--- NOTE | 2019-01-30 18:46 | NUR ---
PATIENT IS AMBULATORY TO ROOM, STATES HER IS GOING TO SPEND THE NIGHT. REUQESTS A BIGGER ROOM AND A CHAIR FOR TO SLEEP IN. EXPLAINED THAT ALL ROOMS ARE THE SAME AND ROLLING CHAIR GIVEN TO THEM.
--- NOTE | 2019-01-30 19:12 | NUR ---
PATIENT IS AT DESK AND STILL VERY DISATIFIED WITH HER ROOM. I TRIED TO CALL THE OFFICE AND THEY ARE NOT PICKING UP NOR THE ANSWERING SERVICE. HANNAH LANDRUM IS IN THE ROOM TALKING TO THE PATIENT TO SEE IF SHE WANTS TO LEAVE OR STAY. PAGE INTO DR BAKER.
--- NOTE | 2019-01-30 19:23 | NUR ---
SPOKE WITH DR. BAKER PER THE PATIENT'S REQUEST. I EXPLAINED TO THE PHYSICIAN THAT THE PATIENT REQUESTED TO BE DISCHARGED TONIGHT AND THAT SHE WOULD COME BACK IN THE MORNING FOR HER SURGERY. THE PATIENT WAS UPSET THAT HER ROOM IS NOT IN [facility] LIKE SHE WAS TOLD IT WOULD BE. DR. BAKER AGREED TO THE DISCHARGE AND STATED TO TELL THE PATIENT SHE NEEDED TO BE BACK TO THE HOSPITAL NO LATER THAN 5AM AND THAT THE PATIENT WAS TO BE NPO AFTER MIDNIGHT.
--- NOTE | 2019-01-30 19:25 | NUR ---
WENT IN TO TELL THE PATIENT THAT SHE COULD GO HOME FOR THE NIGHT AN TO GIVE HER DISCHARGE INSTRUCTIONS. THE PATIENT STATED THAT SHE WANTS TO STAY THE NIGHT BECAUSE SHE DOES NOT WANT HER IV REMOVED AND REPLACED IN THE MORNING.
--- NOTE | 2019-01-30 19:38 | NUR ---
CHANGED PATIENT'S LINENS PER HER REQUEST AND SWITCHED GUEST CHAIRS FROM ANOTHER ROOM PER THE PATIENT'S REQUEST
[2019-01-30 19:56] VITALS: BP 146/97
--- NOTE | 2019-01-30 20:02 | NUR ---
PATIENT CAME OUT TO THE DESK AND NOTIFIED ME THAT SHE HAD LEFT A LONG BLACK SILK SCARF IN HER OUTPATIENT ROOM. I SPOKE WITH MALOU FROM OUTPATIENT WHO CHECKED THE ROOM THE PATIENT WAS IN. MALOU STATED THAT THE ROOM HAD BEEN CLEANED AND THERE WAS NO SCARF. I CALLED AND SPOKE WITH [facility] AND THEY STATED THERE WAS NO SCARF IN THE ROOM WHEN IT WAS CLEANED.
[2019-01-30 23:37] VITALS: BP 131/78
[2019-01-31 03:59] VITALS: BP 120/80
[2019-01-31 05:38] VITALS: BP 131/78; Ht 180.3 cm; Wt 107.7 kg
--- NOTE | 2019-01-31 12:27 | MORECARE ---
CASE MANAGEMENT DISCHARGE SUMMARY PATIENT: ELEAZAR ALEXIS UNIT: [id number] ADM DATE: 01/30/19 AGE: 33 : [birth year] SEX: F ROOM/BED: D.1207 AUTHOR: DEJAH HALE PHYSICIAN: REFERRING PHYSICIAN: MARK LY MD DATE OF SERVICE: 01/31/19 Discharge Plan Patient Name: ELEAZAR ALEXIS Facility: [facility]:[place] : 1985 Planned Disposition: Home Anticipated Discharge Date: Discharge Date: Expected LOS: Initial Reviewer: [email or web address] Initial Review Date: 01/31/2019 Generated: 01/31/19 1:27 pm Comments DCP- Discharge Planning Updated by JOSE MANUEL: Pilar Dee on 01/31/19 11:[address] Patient Name: ELEAZAR ALEXIS Admission Status: Elective Accout number: [id number] Admission Date: 01-30-2019 : 1985 Admission Diagnosis: Attending: Mark Ly Current LOS: 1 Anticipated DC Date: Planned Disposition: Home Primary Insurance: MEDICAID [place] Discharge Planning Comment: CM met with patient to complete initial dc planning assessment. CM educated patient on the CM role and verbal consent given by patient to complete assessment. CM verified patient's address, phone number, and emergency contact phone numbers. Patient lives at home with family and reports she is independent in her care. At discharge patient plans to return home and feels this is a safe discharge. CM discussed availability of home health, rehab services, and medical equipment. Patient denied known discharge needs at this time.. CM will continue to follow and will assist as needed with dc plans/needs.C Last Greaser: Pilar Dee Patient Name: ELEAZAR ALEXIS Page [id number] at 1227 All edits/amendments must be made on the electronic document DICTATION DATE: 01/31/19 1226 FRENCH PASTRY COOK: MYKE 01/31/19 1226 RPT#: [id number] DC DATE: STATUS: ADM IN [facility] [address] [place] [address] END OF REPORT
[2019-01-31 13:40] VITALS: BP 130/76
[2019-01-31 19:33] VITALS: BP 140/96
--- NOTE | 2019-01-31 19:52 | NUR ---
EVENING ROUNDS MADE. PT C/O PAIN IN LOWER ABD. INFORMED PT THAT SHE WASNT ABLE TO HAVE PAIN MEDS AT THIS TIME. PT ALSO C/O NAUSEA. BLUE VOMIT BAG PROVIDED. PHENERGAN IM SHOT GIVEN TO R DELTIOD. VITALS STABLE. WILL CTM.
--- NOTE | 2019-02-01 01:46 | NUR ---
I have reviewed this patient and I concur with the Shift Assessment completed by the Licensed Practical Nurse today this shift.
[2019-02-01 04:43] VITALS: BP 132/85
--- NOTE | 2019-02-01 07:05 | NUR ---
REPORT FROM NIGHTSHIFT AND CARE ASSUMMED. SHE IS ALERT. DRESSING TO ABDOMEN IS C/D/I. TCDB DONE. PILLOW SPLINTING TO ABDOMEN WHILE COUGHING TAUGHT. RESP EVEN WITHOUT LABOR. IV SITE IS CLEAR. F/C PATENT WITH MADELIN URINE DRAINING. SCD'S ON. SAFETY PRECAUTIONS IN PLACE AND PLAN OF CARE REVIEWED. CL IN REACH.
[2019-02-01 07:28] LABS: HEMATOCRIT 32.8 % (36.0-48.0); HEMOGLOBIN 11.7 g/dL (12-16); MCH 26.4 pg (26.0-34.0); MCHC 35.7 g/dL (31.0-37.0); PLATELET COUNT 148 10x3/uL (130-400); RBC 4.43 10x6/uL (4.00-5.40); RDW 14.9 % (11.5-14.5); WBC 14.1 10x3/uL (4.8-10.8)
[2019-02-01 08:09] VITALS: BP 118/67; BP 143/80
--- NOTE | 2019-02-01 08:45 | NUR ---
PAIN MED GIVEN AT THIS TIME. HER ABDOMINAL DRESSING REMAINS CLEAN, DRY AND INTACT. SHE IS TCDB WELL. IV WAS HEPLOCKED AT THIS TIME. REGULAR BREAKFAST WAS SERVED.
--- NOTE | 2019-02-01 08:58 | OP ---
PATIENT NAME: ELEAZAR ALEXIS MEDICAL RECORD: [id number] :89 LOCATION:D.M3 D.1207 ADMISSION DATE:01/30/19 SURGEON: MARK LY MD DATE OF OPERATION: 01/31/2019 PREOPERATIVE DIAGNOSES: 1. Pelvic adhesive disease. 2. Endometriosis. POSTOPERATIVE DIAGNOSIS: Stage IV endometriosis. PROCEDURES: 1. Exploratory laparotomies. 2. Lysis of adhesions. SURGEON: Mark Ly MD COATING OPERATOR: Stanford Lambert. ANESTHESIOLOGIST: Dr. Miramontes ANESTHETIC: General. FINDINGS: Dense adhesions of the bowel to the uterus and right ovary and left ovary. Left ovary is obscured due to dense adhesions. Bilateral endometriomas with the largest of which on the left ovary filling the cul-de-sac. SPECIMENS REMOVED: None. SPECIMEN DISPOSITION: Not applicable. ESTIMATED BLOOD LOSS: Less than or equal to 400 cc. FLUIDS: 1400 cc lactated Ringer's. URINE OUTPUT: 400 cc of clear urine. COMPLICATIONS: None. DRAINS: [id number]. INDICATION: The patient is a 33-year-old G0 with history of adhesions and ovarian cyst. The patient has had persistent pelvic pain and desires future fertility. The patient initially with laparoscopy for diagnosis of pelvic pain and attempt to address the endometriomas. Due to dense adhesions, diagnostic laparoscopy was abandoned and the patient has been counseled for conservative versus more aggressive management to deal with endometriomas. The patient has future fertility desires. DESCRIPTION OF PROCEDURE: After informed consent was assured, the patient was taken to the operating room where the patient was prepped and draped. Incision was made over the old Pfannenstiel scar, carried down to the underlying layer of the fascia, which was opened in the midline and extended laterally. The rectus bellies were in the midline and the peritoneum entered sharply in the mid abdomen. This peritoneal opening was extended down with visualization of OPERATIVE REPORT [id number] ELEAZAR ALEXIS the bladder. The dense adhesions of the bowel are immediately encountered to the fundus of the uterus and across the right ovary. Left ovary was obscured through dense bowel adhesions. Then, the dissection begins over the right ovary. This dissection was carried out sharply and with needle tip Bovie. The dissection was carried down along the fundus of the uterus and posteriorly until the cul-de-sac was freed. Left adnexa remained densely adhesed to the side wall and underneath the bowel. During dissection, the endometrioma on both the right and left ovary were entered and debris cleared. The pelvis was copiously irrigated. The attempts at further dissection of the left adnexa and right adnexa are abandoned when bleeding occurs and adhesions are encountered to be too dense to proceed without risk losing ovary or uterus. Shu is applied to the cul-de-sac to and the right adnexa to stop bleeding and Interceed was placed over the field of dissection. Sponge, lap, and needle counts correct times 2 as the procedure was concluded. Rectus bellies were reapproximated in the midline with loose stitch. The fascia was closed with a looped PDS. The subcutaneous tissue was irrigated. Bleeding vessels cauterized and reapproximated with plain gut. The skins were approximated with a subcuticular stitch. Sterile dressing was applied. Sponge, lap, and needle counts were correct times 3 at the close of this procedure. TRANSINT:[id number] Voice Confirmation ID: [id number] DOCUMENT ID: [id number] MARK LY MD at 0858 CC: [id number] DICTATION DATE: 01/31/[address] TECHNICIAN: 02/01/19 0836 ADM IN [facility] [address] [place] [address]
--- NOTE | 2019-02-01 10:00 | NUR ---
F/C REMOVED. NAHED WELL. SHE HAD 350CC OF OUTPUT NOTED. WILL MONITOR VOIDING. SHE AGREES TO GET UP IN A LITTLE WHILE, SHE IS TALKING ON THE PHONE AT THIS TIME. BOWEL SOUNDS ARE ACTIVE BUT HYPOACTIVE.
--- NOTE | 2019-02-01 12:15 | NUR ---
EATING LUNCH NAHED WELL. DENIES ANY NEEDS. CONTINUE CURRENT POC.
[2019-02-01 12:44] VITALS: BP 121/76
--- NOTE | 2019-02-01 14:01 | NUR ---
SHE GOT UP TO BATHROOM AND URINATED 300CC OF MADELIN URINE. SHE PERFORMED PERICARE. PAIN MED GIVEN AFTER SHE RETURNED TO BED.
--- NOTE | 2019-02-01 15:27 | NUR ---
ON CL TO REQUEST ANOTHER PILLOW AND IT WAS PROVIDED. NO C/O AT THIS TIME. SHE TCDB WELL. DRESSING REMAINS C/D/I TO ABDOMEN
[2019-02-01 15:31] VITALS: BP 134/75
--- NOTE | 2019-02-01 17:30 | NUR ---
UP TO BATHROOM WITH 400CC OF YELLOW URINE OUT. STATES SHE IS SORE BUT SHE IS MOVING SLOW BUT REQUIRING LITTLE ASSIST.
[2019-02-01 20:00] VITALS: BP 124/79
--- NOTE | 2019-02-01 20:09 | NUR ---
RECIEVED UP AMBULATING WITH STAFF NURSE. ALERT AND ORIENTED X4. UP AD JAKOB. DSG TO LOWER ABDOMEN CDI. C/O ABDOMINAL PAIN AND MEDS GIVEN PER ORDERS WITH STATED RELIEF. IV TO LEFT HAND SL. DENIES ANY OTHER NEEDS.
[2019-02-02 00:23] VITALS: BP 122/76
[2019-02-02 04:00] VITALS: BP 117/80
--- NOTE | 2019-02-02 07:00 | NUR ---
RECEIVED SHIFT REPORT FROM NIGHTSHIFT AND CARE ASSUMMED. SHE AROUSES TO VERBAL STIMULI. ALERT ABLE TO VOICE NEEDS. FAMILY ASLEEP IN ROOM. SHE DENIES ANY PAIN AT THIS TIME. CL IN REACH. SAFETY PRECAUTIONS IN PLACE AND PLAN OF CARE REVIEWED.
[2019-02-02 07:24] VITALS: BP 122/75
--- NOTE | 2019-02-02 08:30 | NUR ---
IV SITE IS LEAKING. SALINE LOCK D/C WITH CATH INTACT. RESTARTED IN RIGHT A/C X1 STICK 22 GUAGE WITH GOOD BLOOD RETURN AND FLUSHES EASILY.
--- NOTE | 2019-02-02 08:39 | NUR ---
IV PAIN MEDICATION GIVEN AT THIS TIME.
--- NOTE | 2019-02-02 09:00 | NUR ---
DR LY CAME BY AND PLANS TO DISCHARGE HER. SHE STATES SHE WILL NOT HAVE A RIDE UNTIL AFTER 5 TODAY.
--- NOTE | 2019-02-02 09:10 | NUR ---
PAIN IS BETTER BUT IS HAVING MORE PAIN THAT FEELS LIKE GAS. SHE IS ENCOURAGED AND EDUCATED ABOUT THE IMPORTANCE OF GETTING UP AND AMBULATING.
[2019-02-02 11:10] VITALS: BP 105/69
--- NOTE | 2019-02-02 11:30 | NUR ---
ALERT. DENIES ANY CURRENT NEEDS. CL IN REACH
--- NOTE | 2019-02-02 12:30 | NUR ---
UP TO BATHROOM AT THIS TIME. DENIES ANY NEEDS.
[2019-02-02] MEDS ORDERED: IBUPROFEN800 MG PO (13:18)
[2019-02-02] MEDS ORDERED: PERCOCET 7.5/321 TAB (13:20)
--- NOTE | 2019-02-02 13:21 | NUR ---
WRITTEN SCRIPT FOR MOTRIN AND PERCOCET GIVEN TO PATIENT.
--- NOTE | 2019-02-02 13:45 | NUR ---
SHE IS UP AND AMBULATED. TOLERATED WELL. SHE IS STANDING UP MORE AND WALKING STRAIGHTER.
[2019-02-02 15:19] VITALS: BP 124/79
--- NOTE | 2019-02-02 18:05 | NUR ---
DISCHARGED AT THIS TIME DUE TO HER RIDE IS HERE NOW. DISCHARGE INSTRUCTIONS EXPLAINED IN DETAIL TO HER AND . COPY OF DISCHARGE INSTRUCTIONS GIVEN TO HER WITH HER SCRIPTS FOR MEDS. SALINE LOCK D/C IN RIGHT A/C WITH CATH TIP INTACT, PRESSURE APPLIED WITH MINIMAL BLEEDING NOTED. ABDOMEN DRESSING REMAINS CLEAN DRY AND INTACT. VSS ALERT. I TOOK HER BY W/C TRANSPORT TO [facility].
--- NOTE | 2019-02-03 13:47 | MORECARE ---
CASE MANAGEMENT DISCHARGE SUMMARY PATIENT: ELEAZAR ALEXIS UNIT: [id number] ADM DATE: 01/30/19 AGE: 33 : [birth year] SEX: F ROOM/BED: D.1207 AUTHOR: DEJAH HALE PHYSICIAN: REFERRING PHYSICIAN: MARK LY MD DATE OF SERVICE: 02/03/19 Discharge Plan Patient Name: ELEAZAR ALEXIS Facility: [facility]:[place] : 1985 Planned Disposition: Home Anticipated Discharge Date: 02/02/19 Discharge Date: 02/02/2019 Expected LOS: 3 Initial Reviewer: JOSE MANUEL Initial Review Date: 01/31/2019 Generated: 02/03/19 2:46 pm DCP- Discharge Planning Updated by JOSE MANUEL: Pilar Dee on 01/31/19 11:[address] Patient Name: ELEAZAR ALEXIS Admission Status: Elective Accout number: [id number] Admission Date: 01-30-2019 : 1985 Admission Diagnosis: Attending: Mark Ly Current LOS: 1 Anticipated DC Date: Planned Disposition: Home Primary Insurance: MEDICAID [place] Discharge Planning Comment: CM met with patient to complete initial dc planning assessment. CM educated patient on the CM role and verbal consent given by patient to complete assessment. CM verified patient's address, phone number, and emergency contact phone numbers. Patient lives at home with family and reports she is independent in her care. At discharge patient plans to return home and feels this is a safe discharge. CM discussed availability of home health, rehab services, and medical equipment. Patient denied known discharge needs at this time.. CM will continue to follow and will assist as needed with dc plans/needs.C Camouflage Specialist: Pilar Dee Last DP export: 01/31/19 11:27 a Patient Name: ELEAZAR ALEXIS Page [id number] at 1347 All edits/amendments must be made on the electronic document DICTATION DATE: 02/03/19 1346 POUCH MAKING MACHINE OPERATOR: MYKE 02/03/19 1346 RPT#: [id number] DC DATE:02/02/19 STATUS: DIS IN [facility] [address] [place] [address] END OF REPORT
== END 2019-02-02 18:05 | disposition home or self-care (01) | DRG 743 ==
LOC: D.SDCHOLD 01-30 09:10 → D.M3 01-30 09:10 → D.SDCHOLD 01-30 11:00 → D.M3 01-30 18:37
PROVIDERS: ADMIT Obstetrics & Gynecology; ATTEND Obstetrics & Gynecology
PROC: 0UN70ZZ Release Bilateral Fallopian Tubes, Open Approach (ICD-10-PCS; 2019-01-31)
PROC: 0UNF0ZZ Release Cul-de-sac, Open Approach (ICD-10-PCS; principal; 2019-01-31 08:00)
PROC: 0UN20ZZ Release Bilateral Ovaries, Open Approach (ICD-10-PCS; 2019-01-31 08:00)
DX: N80.1 Endometriosis of ovary (principal); N73.6 Female pelvic peritoneal adhesions (postinfective)

== ENCOUNTER 2019-03-06 12:30 | Emergency (ER) | payer MEDICAID ==
[~2019-03-06] VITALS: Ht 180.3 cm; Wt 133.4 kg
[~2019-03-06 12:30] MED LIST changes: +IBUPROFEN800 MG PO; +PERCOCET 7.5/321 TAB
[2019-03-06 12:50] VITALS: Ht 180.3 cm; Wt 133.4 kg
[2019-03-06 13:14] LABS: BASOPHILS 0.2 % (0-2); EOSINOPHILS 0.4 % (0-7); HEMATOCRIT 34.1 % (36.0-48.0); HEMOGLOBIN 12.3 g/dL (12-16); IMMATURE GRANULOCYTES 0.2 % (0-5); LYMPHOCYTES 20.7 % (15-50); MCH 26.2 pg (26.0-34.0); MCHC 36.1 g/dL (31.0-37.0); MCV 72.6 fL (80.0-100.0); MEAN PLATELET VOLUME 10.8 fL (7.4-10.4); MONOCYTES 4.2 % (2-11); NEUTROPHILS 74.3 % (40-80); PLATELET COUNT 170 10x3/uL (130-400); WBC 9.8 10x3/uL (4.8-10.8)
[2019-03-06 13:28] LABS: ALKALINE PHOSPHATASE 92 U/L (46-116); ALT (SGPT) 13 U/L (10-68); BILIRUBIN - TOTAL 0.39 mg/dL (0.2-1.3); CALC OSMOLALITY 276 mosm/kg (275-300); CALCIUM 8.9 mg/dL (8.5-10.1); CARBON DIOXIDE 21.2 mmol/L (21.0-32.0); CHLORIDE - SERUM 103 mmol/L (98-107); CREATININE - SERUM 0.9 mg/dL (0.6-1.3); GLUCOSE 117 mg/dL (74-106); POTASSIUM - SERUM 3.2 mmol/L (3.5-5.1); PROTEIN - SERUM 8.1 g/dL (6.4-8.2); SODIUM 139 mmol/L (136-145); UREA NITROGEN 8 mg/dL (7-18); eGFR NON AFRICAN AMERICAN 77 mL/min (90-120)
[2019-03-06 13:59] LABS: APPEARANCE SL CLDY (CLEAR); COLOR PINK (YELLOW); HCG URINE NEGATIVE (NEGATIVE); SPECIFIC GRAVITY 1.005 (1.005-1.020)
[2019-03-06 14:00] LABS: BILIRUBIN NEGATIVE (NEGATIVE); GLUCOSE NEGATIVE (NEGATIVE); KETONE MODERATE mg/dL (NEGATIVE); NITRITE NEGATIVE (NEGATIVE); PROTEIN NEGATIVE (NEGATIVE); UROBILINOGEN NORMAL (NORMAL); WHITE CELLS - URINE OCC /hpf (0-5)
[2019-03-06 14:03] LABS: BACTERIA FEW /hpf (NONE SEEN); EPITHELIAL CELLS OCC /hpf (0-5); MUCUS <1+ /lpf (NONE SEEN); RED CELLS - URINE 25-50 /hpf (0-5)
[2019-03-06] MEDS ORDERED: VOLTAREN75 MG PO (17:23)
[2019-03-06] MEDS ORDERED: PHENERGAN25 M1 PO (17:23)
[2019-03-06 17:41] VITALS: BP 182/115
== END 2019-03-06 17:42 | disposition home or self-care (01) ==
LOC: D.ER 12:30
PROVIDERS: Emergency Medicine
DX: N83.201 Unspecified ovarian cyst, right side (principal); R10.9 Unspecified abdominal pain; R11.2 Nausea with vomiting, unspecified

== ENCOUNTER 2019-03-08 10:27 | Emergency (ER) | payer MEDICAID ==
[~2019-03-08] VITALS: Ht 180.3 cm; Wt 128.8 kg
[~2019-03-08 10:27] MED LIST changes: +PHENERGAN25 M1 PO
[2019-03-08 10:39] VITALS: Ht 180.3 cm; Wt 128.8 kg
[2019-03-08] MEDS ORDERED: TYLENOL #4 W/CO1 TAB PO (10:46)
[2019-03-08] MEDS ORDERED: PERCOCET 10-321 EAC1 PO (11:38)
[2019-03-08 12:45] VITALS: BP 155/118
== END 2019-03-08 12:45 | disposition home or self-care (01) ==
LOC: D.ER 10:27
DX: R10.2 Pelvic and perineal pain (principal)

== ENCOUNTER 2020-11-30 20:19 | Emergency (ER) | payer BC ==
[~2020-11-30] VITALS: Ht 180.3 cm; Wt 75.9 kg
[~2020-11-30 20:19] MED LIST changes: +BACLOFEN20 M1 PO; +KEFLEX500 MG PO; +MACROBID100 MG PO; +NAPROSYN500 MG PO; +PERCOCET 10-321 EAC1 PO; +TYLENOL #4 W/CO1 TAB PO
[2020-11-30] MEDS ORDERED: HYDROCODON-ACE1 EA10 PO (20:26)
[2020-11-30] MEDS ORDERED: BIRTH CONTROL (20:27)
[2020-11-30 20:39] LABS: BASOPHILS 0.1 % (0-2); EOSINOPHILS 0 % (0-7); HEMATOCRIT 42.1 % (36.0-48.0); HEMOGLOBIN 15.2 g/dL (12-16); IMMATURE GRANULOCYTES 0.4 % (0-5); LYMPHOCYTES 9.8 % (15-50); MCH 27.5 pg (26.0-34.0); MCHC 36.1 g/dL (31.0-37.0); MCV 76.1 fL (80.0-100.0); MEAN PLATELET VOLUME 11.5 fL (7.4-10.4); MONOCYTES 1.2 % (2-11); NEUTROPHILS 88.5 % (40-80); PLATELET COUNT 206 10x3/uL (130-400); RBC 5.53 10x6/uL (4.00-5.40); RDW 14.3 % (11.5-14.5); WBC 9.2 10x3/uL (4.8-10.8)
[2020-11-30 20:50] LABS: ANION GAP 20.6 mmol/L (8-16); CALCIUM 9.5 mg/dL (8.5-10.1); POTASSIUM - SERUM 3.6 mmol/L (3.5-5.1)
[2020-11-30 20:55] LABS: ALBUMIN 4.2 g/dL (3.4-5.0); BILIRUBIN - TOTAL 0.59 mg/dL (0.2-1.3); PROTEIN - SERUM 8.5 g/dL (6.4-8.2)
[2020-11-30 21:09] LABS: BILIRUBIN NEGATIVE (NEGATIVE); HCG URINE NEGATIVE (NEGATIVE); KETONE MODERATE mg/dL (NEGATIVE); NITRITE NEGATIVE (NEGATIVE); UROBILINOGEN NORMAL mg/dL (< 2)
[2020-11-30 21:12] LABS: WHITE CELLS - URINE 0-5 HPF (0-4)
[2020-11-30 21:13] LABS: BACTERIA FEW HPF (NONE SEEN); SQUAMOUS EPITHELIAL 0-5 HPF (0-4)
[2020-11-30 22:25] VITALS: BP 196/100
[2020-11-30 22:53] VITALS: BP 165/95
[2020-12-01 02:33] VITALS: BP 165/91
[2020-12-01 17:35] VITALS: Ht 180.3 cm; Wt 75.9 kg
== END 2020-12-01 02:51 | disposition other institution (70) ==
LOC: OBSVTIME → D.ER 20:19 → D.LD 12-01 02:03 → OBSVTIME 12-01 02:03 → D.ER 12-01 02:51
PROVIDERS: Family Medicine
DX: R10.9 Unspecified abdominal pain (principal)